=== PATIENT | male | born 1970 | race Caucasian/White ===

== ENCOUNTER 2020-10-06 17:30 | Emergency (ER) | payer MEDICAID ==
[~2020-10-06] VITALS: Ht 182.9 cm; Wt 88.6 kg
[~2020-10-06 17:30] MED LIST: NO HOME MEDS
[2020-10-06] MEDS ORDERED: MEDDOSEPAK PO (19:42)
[2020-10-06] MEDS ORDERED: EC-NAPROSYN375 MG PO (19:42)
[2020-10-06 20:03] VITALS: BP 140/74
== END 2020-10-06 20:09 | disposition home or self-care (01) ==
LOC: ED 17:30
DX: M17.11 Unilateral primary osteoarthritis, right knee (principal)

== ENCOUNTER 2024-06-18 16:49 | Emergency (ER) | payer SELFPAY ==
[2024-06-18] VITALS (12 sets, daily range): BP systolic 118–141; BP diastolic 73–100
[~2024-06-18] VITALS: Ht 182.9 cm; Wt 104.0 kg
[~2024-06-18 16:49] MED LIST changes: +EC-NAPROSYN375 MG PO; +MEDDOSEPAK PO
[2024-06-18] MEDS ORDERED: ASPIRIN 81 MG/TAB PO ONE (17:05)
[2024-06-18] MEDS ORDERED: Pantoprazole Sodium 40 MG VIAL (Protonix) IV ONE (17:10)
[2024-06-18] MEDS ORDERED: SODIUM CHLORIDE 0.9% 1,000 ML IV ONE (17:10)
[2024-06-18] MEDS ORDERED: LIDOCAINE VISCOUS 2% 15 ML UDC PO ONE (17:15)
[2024-06-18] MEDS ORDERED: FAMOTIDINE 10MG/ML 2ML SDV IV ONE (17:15)
[2024-06-18] MEDS ORDERED: ALUM & MAG HYDROX-SIMETHICONE 30 ML PO ONE (17:15)
[2024-06-18 17:33] LABS: BASO% 0.1 % (0-3); EOS% 6.4 % (0-8); IMMATURE GRANULOCYTES 0.2 % (0.0-5.0); LYMPH% 3.6 % (15-41); MEAN CELL VOLUME 90.5 fL CALC (80.0-100.0); MEAN CORPUSCULAR HGB 29.7 pG CALC (26.0-32.0); MEAN CORPUSCULAR HGB CONC 32.9 g/dL CAL (32.0-36.0); MONO% 4.4 % (2-13); NEUT# 13.28 thou/uL (1.82-7.42); NEUT% 85.3 % (42-76); RED BLOOD COUNT 6.29 mill/uL (4.70-6.10); RED CELL DISTRI WIDTH 12.6 % (11.5-15.5)
[2024-06-18 17:34] LABS: HEMATOCRIT 56.9 % (39.0-50.0); HEMOGLOBIN 18.7 g/dl (14.0-18.0)
[2024-06-18] MEDS ORDERED: Iopamidol 370 (Isovue) 76% 100 ML SDV IV ONE (18:20)
[2024-06-18 18:33] LABS: ALBUMIN 3.4 g/dL (3.2-5.0); ALKALINE PHOSPHATASE 83 u/l (38-126); ANION GAP 11 (6-22 (CALC)); BUN 19 mg/dL (9-20); BUN/CREATININE RATIO 24 (12-20 (CALC)); CARBON DIOXIDE 25 mmol/l (22-30); CHLORIDE 104 mmol/l (95-108); CREATININE 0.8 mg/dL (0.7-1.3); ESTIMATED GFR 106 ML/MIN (>=90 (CALC)); LIPASE 62 u/l (23-300); POTASSIUM 4.1 mmol/l (3.5-5.1); SGOT/AST 45 u/l (17-59); SODIUM 135 mmol/l (137-146); TOTAL PROTEIN 6.2 g/dL (6.3-8.2)
[2024-06-18 18:38] LABS: BILIRUBIN, TOTAL 0.7 mg/dL (0.2-1.3)
[2024-06-18] MEDS ORDERED: ONDANSETRON HCl 4 MG/2 ML SDV IV ONE (18:40)
[2024-06-18] MEDS ORDERED: MORPHINE SULFATE 4 MG/ML VIAL IV ONE (18:40)
[2024-06-18] MEDS ORDERED: PROTONIX40 MG PO (21:03)
== END 2024-06-18 21:15 | disposition home or self-care (01) | DRG 392 ==
LOC: ED 16:49
PROVIDERS: Nurse Practitioner
DX: K29.70 Gastritis, unspecified, without bleeding (principal); K21.9 Gastro-esophageal reflux disease without esophagitis; F17.200 Nicotine dependence, unspecified, uncomplicated; I10 Essential (primary) hypertension
CPT/HCPCS: J2405; J2470; Q9967